=== PATIENT | female | born 1955 | race Caucasian/White ===

== ENCOUNTER 2020-06-05 23:37 | Emergency (ER) | payer OTHER, SELFPAY ==
[~2020-06-05] VITALS: Ht 162.6 cm; Wt 103.4 kg
[~2020-06-05 23:37] MED LIST: ALPR1TAB2 PO; ATEN50TA8 PO; INSU100S53 SC; METF1000 PO; MIC5 PO; NIFE90TE45 PO; SODI650T2 PO; [UNRECOGNIZED DRUG - CODE] PO
[2020-06-06 00:28] VITALS: BP 128/67
[2020-06-06 01:34] LABS: BASOPHILS % (AUTO) 0.3 % (0.0-2.0); EOSINOPHILS % (AUTO) 0.3 % (0.0-4.0); HEMOGLOBIN 11.2 g/dL (12.0-16.0); MEAN CORPUSCULAR HEMOGLOBIN 29 pg (27-31); MEAN CORPUSCULAR HGB CONC 32 g/dL (33-37); MEAN CORPUSCULAR VOLUME 90.2 fL (80-94); MONOCYTES # (AUTO) 0.6 K/uL (0.8-1.0); MONOCYTES % (AUTO) 3.8 % (1.7-9.3); PLATELET COUNT (AUTO) 351 K/uL (140-450); RED BLOOD CELL COUNT(AUTO) 3.88 MIL/uL (4.20-5.40); RED CELL DISTRIBUTION WIDTH 13.8 % (11.6-13.7); WHITE BLOOD COUNT (AUTO) 14.6 K/uL (4.8-10.8)
[2020-06-06] MEDS ORDERED: NACL 0.9% 1,000 ML IV ONE ×2 (01:50→03:55)
[2020-06-06] MEDS ORDERED: ONDANSETRON 4 MG/2 ML VIAL IVP ONE (01:50)
[2020-06-06] MEDS ORDERED: MECLIZINE 25 MG TAB PO ONE (02:25)
[2020-06-06 02:36] LABS: ALBUMIN 3.9 g/dL (3.4-5.0); ANION GAP 18.3 (8-16); CREATININE 2.8 mg/dL (0.6-1.3); POTASSIUM 4.3 mmol/L (3.5-5.1); TOTAL BILIRUBIN 0.4 mg/dL (0.0-1.0)
[2020-06-06 02:55] LABS: APPEARANCE,URINE CLEAR (CLEAR); BILIRUBIN,URINE NEGATIVE (NEGATIVE); BLOOD, URINE NEGATIVE (NEGATIVE); COLOR,URINE YELLOW (YELLOW); LEUKOCYTE ESTERASE ,URINE NEGATIVE (NEGATIVE); NITRITE, URINE NEGATIVE (NEGATIVE); PH,URINE 5.5 (5.0-9.0); UGLUCOSE NEGATIVE (NEGATIVE)
[2020-06-06 03:06] LABS: LYMPHOCYTES % (AUTO) 6.6 % (20.5-51.1)
[2020-06-06] MEDS ORDERED: cefTRIAXone 1,000 MG VIAL ONE (04:09)
[2020-06-06 05:51] VITALS: BP 128/67
== END 2020-06-06 05:45 | disposition home or self-care (01) ==
LOC: MED 23:37
DX: R53.1 Weakness (principal); Z20.828 Contact with and (suspected) exposure to other viral communicable diseases; N17.9 Acute kidney failure, unspecified; D72.829 Elevated white blood cell count, unspecified; E11.9 Type 2 diabetes mellitus without complications; I10 Essential (primary) hypertension; Z79.84 Long term (current) use of oral hypoglycemic drugs; Z79.899 Other long term (current) drug therapy
CPT/HCPCS: 36415; 71045; 80053; 81003; 82948; 83605; 83880; 84484; 85025; 87040; 87086; 87804; 93005; 96361; 96365; 96375; 99285; J0696; J2405; J7030; J8597; U0003